=== PATIENT | female | born 1985 | race Two or more races ===

== ENCOUNTER 2021-06-17 06:07 | Inpatient (IN) | payer OTHER ==
[~2021-06-17] VITALS: Ht 157.5 cm; Wt 3.2 kg
[2021-06-17] MEDS ORDERED: HEMATRON-AF TABLETS (08:33)
[2021-06-17] MEDS ORDERED: PRENATAL CAPLE1 EAC1 PO (08:34)
[2021-06-18] MEDS ORDERED: MILI 0.25-0.031 EACH (08:20)
[2021-06-20] MEDS ORDERED: OXYC1TAB9 PO (11:09)
[2021-06-20] MEDS ORDERED: SIMETHICONE125 M1 PO (11:09)
[2021-06-20] MEDS ORDERED: FERROUS SULFAT325 M1 PO (11:09)
[2021-06-20] MEDS ORDERED: DOCUSATE SODIU100 MG PO (11:09)
== END 2021-06-20 13:25 | disposition home or self-care (01) | DRG 786 ==
LOC: LDR 06:07 → OB/GYN 17:10
PROVIDERS: ADMIT Obstetrics & Gynecology; ATTEND Obstetrics & Gynecology
PROC: 4A1HXFZ Monitoring of Products of Conception, Cardiac Rhythm, External Approach (ICD-10-PCS; 2021-06-17)
PROC: 3E033VJ Introduction of Other Hormone into Peripheral Vein, Percutaneous Approach (ICD-10-PCS; 2021-06-17)
PROC: 10D00Z1 Extraction of Products of Conception, Low, Open Approach (ICD-10-PCS; principal; 2021-06-17 13:00)
DX: O62.1 Secondary uterine inertia (principal); O99.42 Diseases of the circulatory system complicating childbirth; I34.1 Nonrheumatic mitral (valve) prolapse; O90.81 Anemia of the puerperium; D64.9 Anemia, unspecified; Z3A.39 39 weeks gestation of pregnancy; Z37.0 Single live birth